=== PATIENT | female | born 1960 | race Caucasian/White ===

== ENCOUNTER 2018-07-29 23:05 | Observation (INO) ==
--- NOTE | 2018-07-29 23:41 | ED ---
HPI General Chief Complaint: Syncope Stated Complaint: Patient states passed out Time Seen by Provider: 07/29/18 23:26 Source: patient and family Mode of arrival: ambulatory Limitations: no limitations History of Present Illness HPI narrative: Patient states at this occurred 1 week ago and then again today. The symptoms preceding the episode of syncope, included diaphoresis, lightheadedness dizziness palpitations and then according to the she would fall onto the ground no shaking episode of her body however her eyes would roll back. Prior to these symptoms/episodes she has never had anything like this before. This occurred while sitting down watching a live band. MD complaint: loss of consciousness Prodromal symptoms: lightheaded, palpitations and diaphoresis Witnessed: yes - by bystander Context: at rest Injuries sustained associated with event: none Current symptoms: none Treatments prior to arrival: none Related Data Home Medications Medication Instructions Recorded Confirmed No Known Home Medications 07/30/18 07/30/18 Allergies Allergy/AdvReac Type Severity Reaction Status Date / Time hydrogen peroxide Allergy Hives Verified 07/29/18 23:16 Review of Systems ROS: all other systems reviewed are negative PMFSH History History Provided By: Patient Medical History Medical History Patient denies medical problems (Acute) Surgical History Surgical History Hx of section (Acute) Social History Social History Smoking Status: Current every day smoker Tobacco Type: Cigarettes How Often Do You Have a Drink Containing Alcohol: Never Recent Travel in [facility] within the Last 8 Weeks: No Recent Out of Country Travel within the Last 8 Weeks: No Immunization History Tetanus Immunization: <5 Years Hx Influenza Vaccine This Season: Yes Exam Narrative Exam Narrative: GENERAL: Well-nourished, well-developed patient in no apparent distress. SKIN: Warm and dry. Small laceration approximately 1.5-2 cm along the right eyebrow region HEAD: Atraumatic. Normocephalic. EYES: Pupils equal and round. No scleral icterus. No injection or drainage. ENT: No nasal bleeding or discharge. Mucous membranes pink and moist. No hemotympanum NECK: Trachea midline. No JVD. CARDIOVASCULAR: Regular rate and rhythm. no rubs or gallops RESPIRATORY: No accessory muscle use. Clear to auscultation. Breath sounds equal bilaterally. GASTROINTESTINAL: Abdomen soft, non-tender, nondistended. No rebound or guarding MUSCULOSKELETAL: Extremities without clubbing, cyanosis, or edema. No obvious deformities. NEUROLOGICAL: Awake and alert. No obvious cranial nerve deficits. Motor grossly within normal limits. Five out of 5 muscle strength in the arms and legs. Normal speech. PSYCHIATRIC: Appropriate mood and affect; insight and judgment normal. Course Initial Documented Vital Signs Temperature 98.4 F 07/29/18 23:12 Pulse Rate 59 L 07/29/18 23:12 Respiratory Rate 14 07/29/18 23:12 Blood Pressure 105/60 07/29/18 23:12 Pulse Oximetry 100 07/29/18 23:12 Last Documented Vital Signs Temperature 98.4 F 07/29/18 23:12 Pulse Rate 84 07/30/18 01:38 Respiratory Rate 18 07/30/18 01:38 Blood Pressure 106/75 07/30/18 01:38 Pulse Oximetry 98 07/30/18 01:38 Medical Decision Making MDM Narrative Medical decision making narrative: Alcohol level negative, Tylenol level negative, salicylates nontoxic range. CBC shows no leukocytosis, no anemia, normal platelet count, no neutrophilia Electrolytes are within normal limits, normal liver and pancreatic enzymes. Creatinine 1.18 slightly decreased GFR 47 slightly elevated First set of cardiac enzymes negative, beta natruretic peptide normal As of 00 20 pending chest x-ray report and pending CT head Imaging studies are complete without acute abnormality. CT pulmonary angiogram was ordered due to elevated d-dimer. This is negative for pulmonary embolus but with gastric distention. Patient will be admitted observation for syncopal workup. A call was placed to hospitalists for admission. Medical Screen Exam Complete: Yes Emergency Medical Condition: Yes Differential Diagnosis Differential Diagnosis: Intracranial hemorrhage versus skull fracture versus dysrhythmia versus anemia versus dehydration versus electrolyte abnormality Medical Records Medical records reviewed: Yes I reviewed the patient's medical records. Attempted to no previous chart, patient was recently moved from [place] approximately 1 month ago Lab Data Result diagrams: 07/29/18 23:35 07/29/18 23:35 Lab Results 07/29/18 07/29/18 07/29/18 Range/Units 23:35 23:35 23:35 WBC 10.4 (4.0-11.0) th/mm3 RBC 3.92 L (4.00-5.30) mil/mm3 Hgb 12.3 (11.6-15.3) gm/dL Hct 37.4 (35.0-46.0) % MCV 95.3 (80.0-100.0) fL MCH 31.3 (27.0-34.0) pg MCHC 32.8 (32.0-36.0) % RDW 15.0 (11.6-17.2) % Plt Count 294 (150-450) th/mm3 MPV 8.0 (7.0-11.0) fL Neut % (Auto) 71.8 H (16.0-70.0) % Lymph % (Auto) 20.4 (9.0-44.0) % [place] % (Auto) 5.8 (0.0-8.0) % Eos % (Auto) 1.4 (0.0-4.0) % Baso % (Auto) 0.6 (0.0-2.0) % Neut # (Auto) 7.5 (1.8-7.7) th/mm3 Lymph # (Auto) 2.1 (1.0-4.8) th/mm3 Grafton # (Auto) 0.6 (0.0-0.9) th/mm3 Eos # (Auto) 0.1 (0.0-0.4) th/mm3 Baso # (Auto) 0.1 (0.0-0.2) th/mm3 WBC Differential . Differential Comment Auto diff final D-Dimer Quant (PE/DVT) 1.01 H (0.00-0.50) mg/L FEU Sodium 145 (136-145) meq/L Potassium 3.7 (3.5-5.1) meq/L Chloride 106 (98-107) meq/L Carbon Dioxide 30.7 (21.0-32.0) meq/L Anion Gap 8 (5-15) meq/L BUN 11 (7-18) mg/dL Creatinine 1.18 H (0.50-1.00) mg/dL Estimated GFR 47 L (>89) mL/min Random Glucose 114 H (74-106) mg/dL Calcium 8.7 (8.5-10.1) mg/dL Total Bilirubin 0.2 (0.2-1.0) mg/dL AST 9 L (15-37) U/L ALT 13 (10-53) U/L Alkaline Phosphatase 53 (45-117) U/L Total Creatine Kinase 56 (26-192) U/L Troponin I Less than 0.02 L (0.02-0.05) ng/mL B-Natriuretic Peptide (0-100) pg/mL Total Protein 6.4 (6.4-8.2) g/dL Albumin 3.1 L (3.4-5.0) g/dL Salicylates (2.8-20.0) mg/dL Acetaminophen Less than 2.0 L (10.0-30.0) mcg/mL Serum Alcohol Less than 3 (0-5) mg/dL 07/29/18 07/29/18 Range/Units 23:35 23:35 WBC (4.0-11.0) th/mm3 RBC (4.00-5.30) mil/mm3 Hgb (11.6-15.3) gm/dL Hct (35.0-46.0) % MCV (80.0-100.0) fL MCH (27.0-34.0) pg MCHC (32.0-36.0) % RDW (11.6-17.2) % Plt Count (150-450) th/mm3 MPV (7.0-11.0) fL Neut % (Auto) (16.0-70.0) % Lymph % (Auto) (9.0-44.0) % Graft[place] % (Auto) (0.0-8.0) % Eos % (Auto) (0.0-4.0) % Baso % (Auto) (0.0-2.0) % Neut # (Auto) (1.8-7.7) th/mm3 Lymph # (Auto) (1.0-4.8) th/mm3 [place]on # (Auto) (0.0-0.9) th/mm3 Eos # (Auto) (0.0-0.4) th/mm3 Baso # (Auto) (0.0-0.2) th/mm3 WBC Differential Differential Comment D-Dimer Quant (PE/DVT) (0.00-0.50) mg/L FEU Sodium (136-145) meq/L Potassium (3.5-5.1) meq/L Chloride (98-107) meq/L Carbon Dioxide (21.0-32.0) meq/L Anion Gap (5-15) meq/L BUN (7-18) mg/dL Creatinine (0.50-1.00) mg/dL Estimated GFR (>89) mL/min Random Glucose (74-106) mg/dL Calcium (8.5-10.1) mg/dL Total Bilirubin (0.2-1.0) mg/dL AST (15-37) U/L ALT (10-53) U/L Alkaline Phosphatase (45-117) U/L Total Creatine Kinase (26-192) U/L Troponin I (0.02-0.05) ng/mL B-Natriuretic Peptide 18 (0-100) pg/mL Total Protein (6.4-8.2) g/dL Albumin (3.4-5.0) g/dL Salicylates 3.6 (2.8-20.0) mg/dL Acetaminophen (10.0-30.0) mcg/mL Serum Alcohol (0-5) mg/dL Imaging Data Radiologist's impression: Chest X-Ray 07/29/18 23:28 CONCLUSION: Basilar density, probably atelectasis. No significant effusion. Head CT 07/30/18 00:01 CONCLUSION: 1. No acute intracranial abnormality. . Chest CTA 07/30/18 01:11 CONCLUSION: 1. Negative for pulmonary embolus. Gastric distention. Discharge Plan Discharge Disposition Patient Disposition: 30 Still Patient Discharge Condition Condition: Stable Discharge Details Diagnosis: Syncope Physicians Team ED Provider: Jaskaran Mcintyre Primary Care Provider: Primary Care ValentinaiAzeb Rxs /Orders / Referrals /Forms Prescriptions: No Action No Known Home Medications RF: 0 Status ED Status: With Doctor
[2018-07-29 23:52] LABS: Baso # (Auto) 0.1 th/mm3 (0.0-0.2); Baso % (Auto) 0.6 % (0.0-2.0); Eos # (Auto) 0.1 th/mm3 (0.0-0.4); Eos % (Auto) 1.4 % (0.0-4.0); Hematocrit 37.4 % (35.0-46.0); Hemoglobin 12.3 gm/dL (11.6-15.3); Lymph # (Auto) 2.1 th/mm3 (1.0-4.8); Lymph % (Auto) 20.4 % (9.0-44.0); Mean Corpuscular HGB Conc 32.8 % (32.0-36.0); Mean Corpuscular Hemoglobin 31.3 pg (27.0-34.0); Mean Corpuscular Volume 95.3 fL (80.0-100.0); Mono # (Auto) 0.6 th/mm3 (0.0-0.9); Mono % (Auto) 5.8 % (0.0-8.0); Neut # (Auto) 7.5 th/mm3 (1.8-7.7); Neut % (Auto) 71.8 % (16.0-70.0); Platelet Count 294 th/mm3 (150-450); Red Blood Count 3.92 mil/mm3 (4.00-5.30); White Blood Count 10.4 th/mm3 (4.0-11.0)
[2018-07-30 00:05] LABS: Alanine Aminotransferase 13 U/L (10-53); Albumin 3.1 g/dL (3.4-5.0); Anion Gap 8 meq/L (5-15); Aspartate Aminotransferase 9 U/L (15-37); Blood Urea Nitrogen 11 mg/dL (7-18); Calcium 8.7 mg/dL (8.5-10.1); Carbon Dioxide 30.7 meq/L (21.0-32.0); Chloride 106 meq/L (98-107); Glomerular Filtration Rate 47 mL/min (>89); Glucose,Random 114 mg/dL (74-106); Potassium 3.7 meq/L (3.5-5.1); Sodium 145 meq/L (136-145)
[2018-07-30 00:09] LABS: Alkaline Phosphatase 53 U/L (45-117); Total Protein 6.4 g/dL (6.4-8.2)
[2018-07-30 00:16] LABS: Creatine Kinase 56 U/L (26-192)
--- NOTE | 2018-07-30 00:21 | XR ---
EXAM DATE: 07/29/2018 11:59 PM EDT AGE/SEX: 57 years / Female INDICATIONS: Syncopal episode. CLINICAL DATA: This is the patient's initial encounter. Patient reports that signs and symptoms have been present for 1 day and indicates a pain score of 0/10. MEDICAL/SURGICAL HISTORY: None. None. COMPARISON: No prior exams available for comparison. FINDINGS: Mild basilar density may represent atelectasis. No effusion. No pneumothorax. Heart size mildly enlar ged. Mildly tortuous aorta. CONCLUSION: Basilar density, probably atelectasis. No significant effusion. Electronically signed by: Bala Moran MD 07/30/2018 12:20 AM EDT
--- NOTE | 2018-07-30 00:47 | CT ---
EXAM DATE: 07/30/2018 12:40 AM EDT AGE/SEX: 57 years / Female INDICATIONS: Fall, laceration to right eyebrow. CLINICAL DATA: This is the patient's initial encounter. Patient reports that signs and symptoms have been present for 1 day and indicates a pain score of 7/10. MEDICAL/SURGICAL HISTORY: None. None. RADIATION DOSE: 56.35 CTDI (mGy) COMPARISON: No prior exams available for comparison. TECHNIQUE: CT of the head without contrast. Using automated exposure control and adjustment of the mA and/or kV according to patient size, radiation dose was kept as low as reasonably achievable to ob tain optimal diagnostic quality images. DICOM format image data is available electronically for revi ew and comparison. FINDINGS: Cerebrum: The ventricles are normal for age. No evidence of midline shift, mass lesion, hemorrhage or acute infarction. No extraaxial fluid collections are seen. Posterior Fossa: The cerebellum and brainstem are intact. The 4th ventricle is midline. The cerebe llopontine angle is unremarkable. Extracranial: The visualized portion of the orbits is intact. Skull: The calvaria is intact. No evidence of skull fracture. CONCLUSION: 1. No acute intracranial abnormality. . Electronically signed by: Bala Moran MD 07/30/2018 12:46 AM EDT
--- NOTE | 2018-07-30 01:56 | CT ---
EXAM DATE: 07/30/2018 1:35 AM EDT AGE/SEX: 57 years / Female INDICATIONS: Syncopal episode. Elevated D-Dimer. CLINICAL DATA: This is the patient's initial encounter. Patient reports that signs and symptoms have been present for 1 day and indicates a pain score of 0/10. MEDICAL/SURGICAL HISTORY: None. section. RADIATION DOSE: 8.14 CTDI (mGy) COMPARISON: No prior exams available for comparison. TECHNIQUE: Volumetric scanning was performed using a multi-row detector CT scanner during bolus infu jake of 75 ml Omnipaque 350 (iohexol) nonionic water-soluble contrast as a single exam dose. The real a was post processed with a variety of visualization algorithms including full volume maximum intensi ty projection and sliding thin slab reformation. Using automated exposure control and adjustment of the mA and/or kV according to patient size, radiation dose was kept as low as reasonably achievable t o obtain optimal diagnostic quality images. DICOM format image data is available electronically for review and comparison. FINDINGS: No filling defects to suggest pulmonary embolic disease. No lung consolidation. No pleural or pericar dial effusion. Mild coronary calcifications. Remote granulomatous disease with calcified granuloma ri ght lower lobe and calcified right hilar lymph nodes. Upper abdomen reveals distended stomach. Otherwise no acute findings. CONCLUSION: 1. Negative for pulmonary embolus. Gastric distention. Electronically signed by: Bala Moran MD 07/30/2018 1:55 AM EDT
--- NOTE | 2018-07-30 03:28 | P.HP ---
History of Present Illness Service: [facility] Primary Care Physician: No Primary Care Physician History of Present Illness: 57-year-old female with a past medical history significant for osteoarthritis and GERD presents to the emergency department after a syncopal episode. The patient reports she was sitting in a bar, listening to live music when she suddenly felt dizzy became diaphoretic and passed out. Witnesses deny any shaking or seizure-like activity. According to the patient, this is the second time she has had an event like this. The first time was approximately 1 week ago when she had the same symptoms resulting in a short loss of consciousness. The patient denies any chest pain or shortness of breath. No fever/chills. No abdominal pain. No nausea/vomiting/diarrhea. No lateralizing signs/symptoms. Review of Systems All other systems reviewed negative except as stated in HPI [facility] - History History Provided By: Patient - Medical History Medical History: Medical History (Last Updated 07/30/18 @ 03:25 by Julia Cisneros MD) GERD (gastroesophageal reflux disease) Osteoarthritis - Surgical History Surgical History: Surgical History (Last Reviewed 07/29/18 @ 23:39 by Jaskaran Mcintyre) Hx of section - Family History Family History: Family History (Last Updated 07/30/18 @ 03:25 by Julia Cisneros MD) Other Coronary artery disease Diabetes mellitus - Tobacco History Tobacco Use In Past 30 Days: Yes Smoking Status: Current every day smoker Tobacco Type: Cigarettes - Alcohol History How Often Do You Have a Drink Containing Alcohol: Never - Travel History Recent Travel in the [place] Within the Last 8 Weeks: No Recent Travel Out of the Country Within the Last 8 Weeks: No - Immunization History Tetanus Immunization: <5 Years Hx Influenza Vaccine This Season: Yes Medications and Allergies Active Medications: Active Medications Sodium Chloride (Ns Inj) 1,000 mls @ 100 mls/hr IV.CONT .Q10H MICHAELA Allergies Allergy/AdvReac Type Severity Reaction Status Date / Time hydrogen peroxide Allergy Hives Verified 07/29/18 23:16 Home Medications Medication Instructions Recorded Confirmed Type No Known Home Medications 07/30/18 07/30/18 History Exam Vital signs: Vital Signs 07/29/18 23:12 07/29/18 23:30 07/30/18 01:38 Temperature 98.4 F Pulse Rate 59 L 84 Respiratory Rate 14 18 18 Blood Pressure 105/60 106/75 Pulse Oximetry 100 98 Intake & Output 07/29/18 07/29/18 07/30/18 06:59 18:59 06:59 Weight 61.235 kg Narrative: Gen.: No acute distress Head: Normocephalic. Atraumatic. EENT: Pupils equal round and reactive to light. Nose without drainage. Airway intact. Throat without injection. Cardiovascular: Regular rate and rhythm. No murmurs, rubs or gallops. Respiratory: Lungs clear to auscultation bilaterally. No wheezes or rhonchi. Abdomen: Soft, nontender, nondistended. No peritoneal signs. Musculoskeletal: No gross deformities. No edema. Skin: No obvious rashes or erythema. Neuro: Sensory and motor grossly intact. Cranial nerves II through XII grossly intact. Results - Labs CBC & Chem 7: 07/29/18 23:35 07/29/18 23:35 Labs: Laboratory Results - last 24 hr 07/29/18 07/29/18 07/29/18 23:35 23:35 23:35 WBC 10.4 RBC 3.92 L Hgb 12.3 Hct 37.4 MCV 95.3 MCH 31.3 MCHC 32.8 RDW 15.0 Plt Count 294 MPV 8.0 Neut % (Auto) 71.8 H Lymph % (Auto) 20.4 Evans % (Auto) 5.8 Eos % (Auto) 1.4 Baso % (Auto) 0.6 Neut # (Auto) 7.5 Lymph # (Auto) 2.1 Evans # (Auto) 0.6 Eos # (Auto) 0.1 Baso # (Auto) 0.1 WBC Differential . Differential Comment Auto diff final D-Dimer Quant (PE/DVT) 1.01 H Sodium 145 Potassium 3.7 Chloride 106 Carbon Dioxide 30.7 Anion Gap 8 BUN 11 Creatinine 1.18 H Estimated GFR 47 L Random Glucose 114 H Calcium 8.7 Total Bilirubin 0.2 AST 9 L ALT 13 Alkaline Phosphatase 53 Total Creatine Kinase 56 Troponin I Less than 0.02 L B-Natriuretic Peptide Total Protein 6.4 Albumin 3.1 L Salicylates Acetaminophen Less than 2.0 L Serum Alcohol Less than 3 07/29/18 07/29/18 23:35 23:35 WBC RBC Hgb Hct MCV MCH MCHC RDW Plt Count MPV Neut % (Auto) Lymph % (Auto) Evans % (Auto) Eos % (Auto) Baso % (Auto) Neut # (Auto) Lymph # (Auto) Evans # (Auto) Eos # (Auto) Baso # (Auto) WBC Differential Differential Comment D-Dimer Quant (PE/DVT) Sodium Potassium Chloride Carbon Dioxide Anion Gap BUN Creatinine Estimated GFR Random Glucose Calcium Total Bilirubin AST ALT Alkaline Phosphatase Total Creatine Kinase Troponin I B-Natriuretic Peptide 18 Total Protein Albumin Salicylates 3.6 Acetaminophen Serum Alcohol - Imaging Impressions Chest X-Ray 07/29/18 23:28 CONCLUSION: Basilar density, probably atelectasis. No significant effusion. Head CT 07/30/18 00:01 CONCLUSION: 1. No acute intracranial abnormality. . Chest CTA 07/30/18 01:11 CONCLUSION: 1. Negative for pulmonary embolus. Gastric distention. Caprini VTE Risk Assessment Caprini VTE Risk Assessment: No/Low Risk (score <= 1) Caprini Risk Assessment Model: Point Value = 1 Point Value = 2 Point Value = 3 Point Value = 5 Age 41-60 Minor surgery BMI > 25 kg/m2 Swollen legs Varicose veins or History of unexplained or recurrent spontaneous Oral contraceptives or hormone replacement Sepsis (< 1 month) Serious lung disease, including pneumonia (< 1 month) Abnormal pulmonary function Acute myocardial infarction Congestive heart failure (< 1 month) History of inflammatory bowel disease Medical patient at bed rest Age 61-74 Arthroscopic surgery Major open surgery (> 45 min) Laparoscopic surgery (> 45 min) Malignancy Confined to bed (> 72 hours) Immobilizing plaster cast Central venous access Age >= 75 History of VTE Family history of VTE Factor V Leiden Prothrombin [id number] Lupus anticoagulant Anticardiolipin antibodies Elevated serum homocysteine Heparin-induced thrombocytopenia Other congenital or acquired thrombophilia Stroke (< 1 month) Elective arthroplasty Hip, pelvis, or leg fracture Acute spinal cord injury (< 1 month) Prophylaxis Regimen: Total Risk Factor Score Risk Level Prophylaxis Regimen 0-1 Low Early ambulation 2 Moderate Order ONE of the following: *Sequential Compression Device (SCD) *Heparin 5000 units SQ BID 3-4 Higher Order ONE of the following medications: *Heparin 5000 units SQ TID *Enoxaparin/Lovenox 40 mg SQ daily (WT < 150 kg, CrCl > 30 mL/min) *Enoxaparin/Lovenox 30 mg SQ daily (WT < 150 kg, CrCl > 10-29 mL/min) *Enoxaparin/Lovenox 30 mg SQ BID (WT < 150 kg, CrCl > 30 mL/min) AND/OR *Sequential Compression Device (SCD) 5 or more Highest Order ONE of the following medications: *Heparin 5000 units SQ TID (Preferred with Epidurals) *Enoxaparin/Lovenox 40 mg SQ daily (WT < 150 kg, CrCl > 30 mL/min) *Enoxaparin/Lovenox 30 mg SQ daily (WT < 150 kg, CrCl > 10-29 mL/min) *Enoxaparin/Lovenox 30 mg SQ BID (WT < 150 kg, CrCl > 30 mL/min) AND *Sequential Compression Device (SCD) Assessment and Plan - Plan Assessment/plan: 1. Syncope Witnessed No seizure activity observed Echo/carotid ultrasound pending 2. Osteoarthritis/GERD Controlled without medications 3. AK I Creatinine 1.18, no baseline for comparison IV fluid hydration Monitor renal function FEN Heart healthy diet Electrolytes: Monitor and replete as needed NS at 100 cc/hour
[2018-07-30] MEDS: Sod Chloride 0.9% Inj 1,000 ML IV.CONT SCH ×3 (04:53→14:12)
--- NOTE | 2018-07-30 09:27 | US ---
EXAM DATE: 07/30/2018 9:19 AM EDT AGE/SEX: 57 years / Female INDICATIONS: Syncope. CLINICAL DATA: This is the patient's initial encounter. Patient reports that signs and symptoms have been present for 2 weeks and indicates a pain score of 0/10. MEDICAL/SURGICAL HISTORY: Gastroesophageal reflux disease. Osteoarthritis. section. COMPARISON: No prior exams available for comparison. VELOCITY PARAMETERS: ICA/CCA Ratio: Right 1.0 , Left 1.0 ICA: Right 63 cm/sec, Left 69 cm/sec CCA: Right 66 cm/sec, Left 72 cm/sec ECA: Right 91 cm/sec, Left 76 cm/sec Vertebral: Right 31 cm/sec antegrade, Left 50 cm/sec antegrade FINDINGS: Right Carotid: No significant plaque is visualized.The waveforms are within normal limits. Left Carotid: No significant plaque is visualized. The waveforms are within normal limits. Other: None. CONCLUSION: No evidence of flow-limiting carotid stenosis. Electronically signed by: Art Seo MD 07/30/2018 9:26 AM EDT
[2018-07-30 12:01] VITALS: RESP 18; TEMP 97.9; O2SAT 97
[2018-07-30 12:02] VITALS: BP 127/79; PULSE 54
--- NOTE | 2018-07-30 13:37 | ECHRPT ---
Indication: Atrial Fib and Flutter CONCLUSIONS Normal left ventricular size and wall thickness. The left ventricular systolic function is normal with an estimated ejection fraction in the range of 60-65%. Trace mitral valve regurgitation. There is trace tricuspid valve regurgitation. The estimated pulmonary arterial pressure is 35 mmHg. BP: / HR: Rhythm: MEASUREMENTS (Male / Female) Normal Values Technical Quality:Good 2D ECHO LV Diastolic Diameter PLAX 4.8 cm 4.2 - 5.9 / 3.9 - 5.3 cm LV Systolic Diameter PLAX 3.1 cm IVS Diastolic Thickness 0.9 cm 0.6 - 1.0 / 0.6 - 0.9 cm LVPW Diastolic Thickness 0.9 cm 0.6 - 1.0 / 0.6 - 0.9 cm LV Relative Wall Thickness 0.4 RV Internal Dim ED PLAX 3.5 cm LVOT Diameter 2.1 cm Aortic Root Diameter 3.0 cm LA Systolic Diameter LX 3.5 cm 3.0 - 4.0 / 2.7 - 3.8 cm M-MODE AV Cusp Separation MM 1.8 cm DOPPLER AV Peak Velocity 163.0 cm/s AV Peak Gradient 10.6 mmHg LVOT Peak Velocity 108.0 cm/s LVOT Peak Gradient 4.7 mmHg AV Area Cont Eq pk 2.3 cm Mitral E Point Velocity 75.0 cm/s Mitral A Point Velocity 52.8 cm/s Mitral E to A Ratio 1.4 LV E' Lateral Velocity 18.2 cm/s Mitral E to LV E' Lateral Ratio 4.1 LV E' Septal Velocity 12.3 cm/s Mitral E to LV E' Septal Ratio 6.1 TR Peak Velocity 252.0 cm/s TR Peak Gradient 25.4 mmHg Right Atrial Pressure 10.0 mmHg Pulmonary Artery Systolic Pressu 35.4 mmHg Right Ventricular Systolic Press 35.4 mmHg PV Peak Velocity 125.0 cm/s PV Peak Gradient 6.3 mmHg FINDINGS LEFT VENTRICLE Normal left ventricular size. Wall thickness is normal. The left ventricular systolic function is normal with an estimated ejection fraction in the range of 60-65%. No regional wall motion abnormalities are present. RIGHT VENTRICLE Normal right ventricular size and systolic function. LEFT ATRIUM The left atrial size is normal. RIGHT ATRIUM The right atrial size is normal. ATRIAL SEPTUM Normal atrial septal thickness without atrial level shunting by limited color doppler interrogation. AORTA The aortic root and proximal ascending aorta are normal in size on limited imaging. MITRAL VALVE Structurally normal mitral valve. Trace mitral valve regurgitation. No mitral valve stenosis. AORTIC VALVE Trileaflet aortic valve. No aortic valve stenosis or regurgitation. TRICUSPID VALVE There is trace tricuspid valve regurgitation. The estimated pulmonary arterial pressure is 35 mmHg. PULMONARY VALVE No pulmonary valve regurgitation or stenosis. VESSELS The inferior vena cava is normal in size. PERICARDIUM No pericardial effusion. Nikunj Rankin (Electronically Signed) Final Date:30 July 2018 13:36
--- NOTE | 2018-07-30 14:55 | P.PNADD ---
Addendum to Inpatient Note Reason for Addendum: Additional Documentation Additional information: Patient's sandra is at the bedside. Patient is alert and oriented. Patient's fianc reports that during the patient's 2 episodes of loss of consciousness over the last week, the presentation was similar where she became nonverbal, her eyes rolled back, then she fell and took about a minute to come and regain her consciousness. He reports that she did on both presentations demonstrate a stiff jaw where he was unable to pop it open but denies any incontinence or tongue biting or classic seizure-like activity otherwise with tremoring of the extremities. Patient denies having any recollection of any chest pain surrounding both of these episodes. She says she walks 2-3 miles daily with no difficulty or symptoms. She denies having any cardiac workup or any neurological workup in the past. CTA of the chest and carotid ultrasounds and echocardiogram are all unremarkable. Has grossly intact range of motion of all 4 extremities, no facial droop, no slurred speech. Will obtain MRI with and without contrast as well as an EEG and also arrange for a Holter monitor and start the patient on Keppra for now. Patient was advised to refrain from driving, operating any heavy machinery, working at all being present at dangerous heights for the foreseeable future. MRI of the head does not show any acute abnormalities. EEG possibly suggestive of epileptic activity. Patient has been started on IV Keppra here and has remained seizure-free. Patient was counseled extensively on activity restrictions and will be discharged with a AED prescription and was informed to follow with neurology. patient has met maximal benefit from hospitalization is clinically stable for discharge.
[2018-07-30] MEDS ORDERED: Gadobutrol PF 2 MMOL/2 ML Vial (for RAD) IV.SIG ONE (17:10)
--- NOTE | 2018-07-30 17:26 | MR ---
EXAM DATE: 07/30/2018 5:15 PM EDT AGE/SEX: 57 years / Female INDICATIONS: Epilepsy. Syncope. CLINICAL DATA: This is the patient's initial encounter. Patient reports that signs and symptoms have been present for 1 day and indicates a pain score of 0/10. MEDICAL/SURGICAL HISTORY: None. section. COMPARISON: [facility] [place], CT HEAD W/O CONTRAST, 07/30/2018. . TECHNIQUE: Multiplanar, multisequence examination of the brain was performed without and with 6.1 ml Gadavist (gadobutrol) contrast as a single exam dose. FINDINGS: No evidence for acute infarction on diffusion-weighted imaging. Ventricles and cisterns are of normal size and configuration. A few tiny foci of increased FLAIR signal in the bilateral centrum semiovale otherwise normal signal intensity of the brain. There is no hemorrhage or mass. No abnormal enhancin g lesions are identified. CONCLUSION: 1. Minimal white matter disease, nonspecific in appearance. 2. Otherwise normal study. Electronically signed by: Ethan Gama MD 07/30/2018 5:24 PM EDT
--- NOTE | 2018-07-30 18:50 | ECG ---
Date Performed: 07/29/2018 Time Performed: 23:43:44 PTAGE: 57 years EKG: SINUS BRADYCARDIA BORDERLINE ECG NO PREVIOUS TRACING DOCTOR: Sebastian Nichole Interpretating Date/Time 07/30/2018 18:47:32
--- NOTE | 2018-07-30 20:25 | MG ---
cc: Richelle Alexander MD EEG NUMBER: [id number] REFERRING PHYSICIAN: Dr. Scales INDICATIONS: In room H91. Hyperventilation and photic done in awake, drowsy. CT is negative. Admitted with syncope, diaphoresis, lightheadedness. DESCRIPTION OF RECORD: The patient has an overall background rhythm of 8-1/2 to 9 Hz, 20-40 microvolts. Hyperventilation performed from the beginning portion without any significant change. Photic stimulation does elicit a posterior driving response. EKG cannot be interpreted. It is low-amplitude, some myogenic artifact with some questionable sharp waves seen at EPOC 100, as well as 102 on 119. Initially, there was a possible phase reversal at F8, T4-T4, T6, EPOC 93. IMPRESSION: Abnormal EEG due to isolated sharps as well as some occasional phase reversal. This was seen post-hyperventilation. Certainly may be focus for epileptogenicity in the patient. Consideration of antiepileptic medicine. Clinical correlation. MD JAVIER Chamorro/mandy , 07:05 PM , 07:11 PM
== END 2018-07-30 18:33 | disposition home or self-care (01) ==
LOC: NEPD 23:05 → NEDA 23:05 → NEPHCDU 07-30 04:11
PROVIDERS: ADMIT Hospitalist; ATTEND Hospitalist
DX: R79.1 Abnormal coagulation profile; N28.9 Disorder of kidney and ureter, unspecified; G40.909 Epilepsy, unspecified, not intractable, without status epilepticus; Z82.49 Family history of ischemic heart disease and other diseases of the circulatory system; M19.90 Unspecified osteoarthritis, unspecified site; K31.89 Other diseases of stomach and duodenum; I25.10 Atherosclerotic heart disease of native coronary artery without angina pectoris; R94.01 Abnormal electroencephalogram [EEG]; R55 Syncope and collapse; Z83.3 Family history of diabetes mellitus; K21.9 Gastro-esophageal reflux disease without esophagitis; F17.210 Nicotine dependence, cigarettes, uncomplicated